=== PATIENT | female | born 1975 | race Asian ===

== ENCOUNTER → 2024-05-27 | Outpatient (CLI) | payer MEDICAID, SELFPAY ==
--- NOTE | 2024-05-27 08:15 | XR_ITS ---
Examination: Breast ultrasound, unilateral, right Date and time of exam: May 27, 2024 0859 hours INDICATIONS: Mammogram 01/29/2024 grouped microcalcifications 12:00 position right breast Technique: Real-time simon scale ultrasonographic imaging performed right breast including all 4 quadrants as well as nipple retroareolar and axillary region. Findings: No cystic or solid mass IMPRESSION: BI-RADS Category 1: Negative study
--- NOTE | 2024-05-27 08:45 | XR_ITS ---
Examination: Diagnostic digital mammography, unilateral, right Computer aided detection 3-D breast Tomosynthesis, unilateral Date and time of exam: May 27, 2024 0925 hours INDICATIONS: Mammogram 01/29/2024 microcalcifications 12:00 position right breast Technique: Nonmagnified MLO, CC views of the right breast have been obtained, reconstructed from 3-D Tomosynthesis images. R2 computer aided detection program utilized for evaluation of suspicious masses and/or abnormal calcifications. 3-D Tomosynthesis images obtained. Findings: The breast is heterogeneously dense, which may obscure small masses Grouped suspicious microcalcifications are confirmed 12:00 position right breast Impression: BI-RADS category 4: Suspicious for malignancy Suspicious microcalcifications confirmed 12:00 position right breast, biopsy is needed to exclude breast carcinoma, these calcifications are amenable to stereotactic breast biopsy for diagnosis
== END | disposition home or self-care (01) ==
LOC: CDIM 08:37
PROVIDERS: Referring Provider Obstetrics & Gynecology; Visit Provider Obstetrics & Gynecology
DX: R92.341 Mammographic extreme density, right breast (principal); R92.0 Mammographic microcalcification found on diagnostic imaging of breast
CPT/HCPCS: 76641; 77061; 77065; G0279

== ENCOUNTER → 2024-08-16 | Outpatient (CLI) | payer MEDICAID, SELFPAY ==
--- NOTE | 2024-08-16 10:00 | XR_ITS ---
Examination: Stereotactic guided vacuum assisted right breast biopsy with clip placement Specimen radiograph Date and time of exam:August 16, 2024 1103 hours INDICATIONS: Mammogram May 27, 2024 BI-RADS 4 suspicious microcalcifications 12:00 position right breast Timeout performed, documenting correct patient, order, referring physician, patient's site and reason for procedure, allergies to medications Informed consent provided. Time out performed Technique: The lesion right breast was localized with a stereotactic apparatus. Local anesthesia was obtained after prepping the skin at the entrance site and applying sterile drape Maximum sterile barrier technique. 6 core biopsies were then obtained, vacuum assisted, stereotactically guided, at the lesion site. Specimens appear adequate. Stereotactic breast marker was introduced at the lesion site Estimated blood loss 2 cc. Patient tolerated the procedure well and appeared in satisfactory and stable condition at completion of the procedure Pathology report to follow Impression: Successful stereotactic breast biopsy as described above. Specimen radiograph contains the biopsied suspicious microcalcifications.
[2024-08-16 10:06] LABS: Basophils % (Auto) 1 % (0-2.5); Eosinophils # (Auto) 0.1 Thou/mm3 (0.0-0.5); Eosinophils % (Auto) 3 % (0-10); Hemoglobin 13.3 g/dL (12.0-16.0); Immature Granulocytes % (Auto) 0 % (0-0); Immature Granulocytes Auto 0.01 Thou/mm3 (0.00-0.00); Lymphocytes # (Auto) 1.8 Thou/mm3 (1.0-4.8); Lymphocytes % (Auto) 38 % (10-50); Mean Corpuscular HGB Conc 31.7 g/dl (31.0-37.0); Mean Corpuscular Hemoglobin 27.8 pg (25.0-35.0); Mean Corpuscular Volume 88 fL (80-100); Monocytes # (Auto) 0.4 Thou/mm3 (0.0-0.8); Monocytes % (Auto) 9 % (0-12); Neutrophils # (Auto) 2.3 Thou/mm3 (1.8-7.7); Neutrophils % (Auto) 49 % (37-80); Nucleated Red Blood Cell % 0 /100 WBC (0); Platelet Count 223 Thou/mm3 (140-440); RDW Standard Deviation 41.3 fL (36.4-46.3); Red Blood Count 4.79 Miln/mm3 (4.00-5.20); White Blood Count 4.7 Thou/mm3 (3.6-11.0)
[2024-08-16 10:10] LABS: Partial Thromboplastin Time 28.2 Seconds (22.0-36.0)
[2024-08-16 10:16] LABS: HCG,Qualitative Serum Negative
== END | disposition home or self-care (01) ==
LOC: CDIM 08:38
PROVIDERS: Radiology Diagnostic Radiology; PCP Obstetrics & Gynecology; Referring Provider Obstetrics & Gynecology; Visit Provider Obstetrics & Gynecology
DX: D24.1 Benign neoplasm of right breast (principal); R92.0 Mammographic microcalcification found on diagnostic imaging of breast; N60.11 Diffuse cystic mastopathy of right breast
CPT/HCPCS: 19081; 36415; 84703; 85025; 85610; 85730; A4648; A4649; J3490

== ENCOUNTER → 2025-04-25 | Outpatient (CLI) | payer MEDICAID, SELFPAY ==
--- NOTE | 2025-04-25 09:00 | XR_ITS ---
Examination: MRI left foot, without contrast Date and time of exam: April 25, 2025, 10 0 2:00 a.m. INDICATIONS: Left foot metatarsalgia 2 years Technique: Multiple axial sagittal and coronal images of the left foot have been obtained with the Siemens high-resolution 1.5 Eliza MRI scanner. Images obtained include T2-weighted fat-suppressed sagittal sections, TR 3500, TE 46, T2 weighted coronal fat suppressed images, TR 3050, TE 84, T2-weighted transverse fat suppressed images, TR 3260, TE 63, proton density transverse images, TR 4720 TE 46, and T1 weighted coronal images, TR 560, TE 13. Findings: Asymmetric small effusion at the first metatarsophalangeal joint No marrow edema bone contusion or occult fracture or avascular necrosis Extensor and flexor tendons intact No erosive arthritis Mild thickening of the Achilles tendon Negative for plantar fasciitis Negative for sinus Tarsi syndrome Mild narrowing first metatarsophalangeal joint IMPRESSION: Mild osteoarthritis first metatarsophalangeal joint with small effusion involving the first metatarsophalangeal joint No occult fracture or bone contusion or marrow edema or avascular necrosis Correlation with plain films of the left foot would be helpful
== END | disposition home or self-care (01) ==
LOC: SMRI 08:59
PROVIDERS: PCP Podiatrist; Referring Provider Podiatrist; Visit Provider Podiatrist
DX: M19.072 Primary osteoarthritis, left ankle and foot (principal); M25.475 Effusion, left foot
CPT/HCPCS: 73718